=== PATIENT | male | born 1990 | race Caucasian/White ===

== ENCOUNTER 2018-08-17 11:22 | Inpatient (IN) | payer SELFPAY ==
--- NOTE | 2018-08-17 11:41 | EDPHY ---
H & P Time Seen by Provider: 08/17/18 11:41 HPI/ROS: HPI: This is a 27-year-old male who presents with Chief Complaint: Hallucination Location: psych Quality: Hallucination Duration: Unknown Signs and Symptoms: + auditory hallucinations, +visual hallucinations, no suicidal ideation with a plan, no homicidal ideation, + paranoia Timing: Unknown Severity: Severe Context: Patient presents on M1 hold from the walk-in clinic as he was reporting id you and usual hallucinations of "5-7 different voices" stating "to our which is." Patient reports seeing "which is in the flesh" in the room with the interview urine expresses distress about "which is tell me to do things I do not want to do." Patient reports history of bipolar disorder, presently denies taking medications. Patient unable to report last meal in sleep and is gravely disabled. Denies any drug or alcohol use. Modifying Factors: None Comment: ROS: Difficult to obtain as patient is gravely disabled MEDICAL/SURGICAL/SOCIAL HISTORY: Medical history: Bipolar disorder Surgical history: unknown Social history: Reports born in [place]. CONSTITUTIONAL: Untidy, malodorous, white male sleeping on left side, easily awakened upon calling his name, awake and alert, no obvious distress HEENT: Atraumatic and normocephalic, PERRL, EOMI. Nares patent; no rhinorrhea; no nasal mucosal edema. Tympanic membranes clear. Oropharynx clear, no exudate and moist pink mucosa. Airway patent. No lymphadenopathy. No meningismus. Cardiovascular: Normal S1/S2, regular rate, regular rhythm, without murmur rub or gallop. PULMONARY/CHEST: Symmetrical and nontender. Clear to auscultation bilaterally. Good air movement. No accessory muscle usage. ABDOMEN: Soft, nondistended, nontender, no rebound, no guarding, no peritoneal signs, no masses or organomegaly. No CVAT. EXTREMITIES: 2/2 pulses, strength 5/5, no deformities, no clubbing, no cyanosis or edema. NEUROLOGICAL: no focal neuro deficits. GCS 15. SKIN: Warm and dry, no erythema. no rash. Good capillary refill. PSYCH: Poor eye contact, + flight of ideas, tangential disorganized thought process, poor insight and judgment,+ auditory hallucinations, +visual hallucinations, no suicidal ideation with a plan, no homicidal ideation, + paranoia Source: Patient, RN/MD Exam Limitations: Clinical condition Constitutional: Initial Vital Signs Temperature (C) 36.8 C 08/17/18 11:22 Heart Rate 93 08/17/18 11:22 Respiratory Rate 16 08/17/18 11:22 Blood Pressure 139/82 H 08/17/18 11:22 O2 Sat (%) 98 08/17/18 11:22 O2 Delivery Mode Room Air Allergies/Adverse Reactions: Sulfa (Sulfonamide Antibiotics) Allergy (Verified 08/17/18 11:58) Home Medications: Medication Instructions Recorded NK [No Known Home Meds] 08/17/18 Medical Decision Making ED Course/Re-evaluation: Agree with M1 hold as patient is gravely disabled. Labs and UDS ordered. Given Zyprexa 5 mg. 1250: Labs reviewed and grossly unremarkable. Urine drug screen negative. Medically clear for mental health evaluation. 1345: Psychiatry recommends inpatient admission. Accepted at [address] [place] [address] Modi[address] EMTALA form completed. This patient was seen under the supervision of my secondary supervising physician. I evaluated care for this patient independently. Discussed this patient with Dr. Roldan. Differential Diagnosis: Differential diagnosis includes but is not limited to schizophrenia, gael, psychosis, bipolar disorder, intoxicant use. - Data Points Laboratory Results: Laboratory Results 08/17/18 11:53 08/17/18 11:53 08/17/18 08/17/18 08/17/18 11:53 11:53 11:40 WBC 7.59 10^3/uL 10^3/uL (3.80-9.50) RBC 5.72 10^6/uL 10^6/uL (4.40-6.38) Hgb 17.7 g/dL H g/dL (13.7-17.5) Hct 48.3 % % (40.0-51.0) MCV 84.4 fL fL (81.5-99.8) MCH 30.9 pg pg (27.9-34.1) MCHC 36.6 g/dL g/dL (32.4-36.7) RDW 11.9 % % (11.5-15.2) Plt Count 220 10^3/uL 10^3/uL (150-400) MPV 12.1 fL H fL (8.7-11.7) Neut % (Auto) 70.7 % % (39.3-74.2) Lymph % (Auto) 18.6 % % (15.0-45.0) Warrick % (Auto) 7.2 % % (4.5-13.0) Eos % (Auto) 2.6 % % (0.6-7.6) Baso % (Auto) 0.8 % % (0.3-1.7) Nucleat RBC Rel Count 0.0 % % (0.0-0.2) Absolute Neuts (auto) 5.36 10^3/uL 10^3/uL (1.70-6.50) Absolute Lymphs (auto) 1.41 10^3/uL 10^3/uL (1.00-3.00) Absolute Monos (auto) 0.55 10^3/uL 10^3/uL (0.30-0.80) Absolute Eos (auto) 0.20 10^3/uL 10^3/uL (0.03-0.40) Absolute Basos (auto) 0.06 10^3/uL 10^3/uL (0.02-0.10) Absolute Nucleated RBC 0.00 10^3/uL 10^3/uL (0-0.01) Immature Gran % 0.1 % % (0.0-1.1) Immature Gran # 0.01 10^3/uL 10^3/uL (0.00-0.10) Sodium 140 mEq/L mEq/L (135-145) Potassium 4.3 mEq/L mEq/L (3.3-5.0) Chloride 105 mEq/L mEq/L (97-110) Carbon Dioxide 22 mEq/l mEq/l (22-31) Anion Gap 13 mEq/L mEq/L (6-14) BUN 26 mg/dL H mg/dL (7-23) Creatinine 0.9 mg/dL mg/dL (0.7-1.3) Estimated GFR > 60 Glucose 101 mg/dL H mg/dL (70-100) Calcium 10.2 mg/dL mg/dL (8.5-10.4) Urine Opiates Screen NEGATIVE (NEGATIVE) Urine Barbiturates NEGATIVE (NEGATIVE) Ur Phencyclidine Scrn NEGATIVE (NEGATIVE) Ur Amphetamine Screen NEGATIVE (NEGATIVE) U Benzodiazepines Scrn NEGATIVE (NEGATIVE) Urine Cocaine Screen NEGATIVE (NEGATIVE) U Marijuana (THC) Screen NEGATIVE (NEGATIVE) Ethyl Alcohol < 10 mg/dL mg/dL (0-10) Medications Given: Discontinued Medications Olanzapine (Zyprexa Zydis) 5 mg PO EDNOW ONE Stop: 08/17/18 12:33 Last Admin: 08/17/18 12:42 Dose: 5 mg Departure - Departure Disposition: [facility] IP Clinical Impression: Acute schizophrenia-like psychotic disorder Condition: Fair
[2018-08-17 12:18] LABS: PLATELET COUNT 220 10^3/uL (150-400)
[2018-08-17] MEDS ORDERED: OLANZapine DISINTEGR 5 MG TAB PO ONE (12:32)
--- NOTE | 2018-08-17 13:57 | ASMTTLCEVL ---
TLC Evaluation - Basic Information Evaluation Start Date and 08/17/2018 01:00 PM Time Hospital Status Answers: M1 Hold 72-hr M1 Hold Start Date 08/17/2018 10:47 AM and Time Patient statement Notes: I hear 5-7 voices, two of them are witches that tell me what to do and that I belong to them. Narrative Notes: Pt is a 27 yo, single, unemployed, homeless male with reported history of Bipolar disorder, brought to [facility] ED by [facility] on M1 hold executed by clinician at the [facility] which noted: Ct report command auditory and visual hallucinations of 5-7 different voices stating two are witches. Ct report seeing witches in the flesh in the room and expresses distress about witches telling me to do things I dont want to. Ct reports history of bipolar diagnosis, presently denies taking medications. Ct unable to report last meal and sleep and is gravely disabled. Per collateral from [facility] staff, pt was found and brought to [facility] by [employer] after pt was witnessed running and chasing a dog around his car. Pt presented barefoot and with poor hygiene. Pt reported experiencing command auditory and visual hallucinations, two of the voices being witches that tell him he belongs to them, but says he know they are not real. Pt denied taking present medications. Pt did not appear to be a reliable historian and his thought processes were disorganized. He appeared at times to be responding to internal stimuli aeb glaring stare in the room and making several sudden movements and gestures with his hands, arms, and legs. When asked where he is from, he replied from here, from right here. When asked where his family is he stated my family is everywhere. Pt was directable and not aggressive. Pt was administered Zyprexa Zydis 5 mg po at 1242 hrs in the ED. Labs were WNL. UDS results were negative for all tested substances. Pt denied suicidal or homicidal ideation. Diagnosis History Notes: Reported past history of Bipolar disorder. Prior suicide attempts Notes: Unknown. Pt did not appear to be a reliable historian and his thought processes were disorganized. Treatment Responses Notes: Unknown. Pt did not appear to be a reliable historian and his thought processes were disorganized. History of violence Notes: Unknown. Pt did not appear to be a reliable historian and his thought processes were disorganized. Pt was directable and not aggressive. Therapist: Unknown. Pt did not appear to be a reliable historian and his thought processes were disorganized. Psychiatrist: Unknown. Pt did not appear to be a reliable historian and his thought processes were disorganized. Medications (name, dosage, route, freq uency) Notes: Unknown. Pt did not appear to be a reliable historian and his thought processes were disorganized. Pt stated his lasts use of medication as two weeks ago . . . six years. Allergies/Reaction Notes: NKDA. Sleep Notes: Unknown. Pt did not appear to be a reliable historian and his thought processes were disorganized. Appetite Notes: Unknown. Pt did not appear to be a reliable historian and his thought processes were disorganized. Medical/Surgical history Notes: Unknown. Pt did not appear to be a reliable historian and his thought processes were disorganized. Substance use history (frequency, intensity, his tory, duration) Notes: Unknown. Pt did not appear to be a reliable historian and his thought processes were disorganized. Family composition Notes: Unknown. Pt did not appear to be a reliable historian and his thought processes were disorganized. Need for family Answers: No participation in patient's care Family psychiatric/substance abuse history Notes: Unknown. Pt did not appear to be a reliable historian and his thought processes were disorganized. Developmental history Notes: Unknown. Pt did not appear to be a reliable historian and his thought processes were disorganized. Abuse concerns Answers: None Marital status/children Notes: Unknown. Pt did not appear to be a reliable historian and his thought processes were disorganized. Living situation Notes: Presumed homeless. Unknown. Pt did not appear to be a reliable historian and his thought processes were disorganized. Sexual history/orientation Notes: Presumed homeless. Unknown. Pt did not appear to be a reliable historian and his thought processes were disorganized. Peer support/family strengths Notes: None identified. Unknown. Pt did not appear to be a reliable historian and his thought processes were disorganized. Education level/history Notes: None identified. Unknown. Pt did not appear to be a reliable historian and his thought processes were disorganized. Work history Notes: Presumed to be unemployed. Unknown. Pt did not appear to be a reliable historian and his thought processes were disorganized. Notes: None. Legal Notes: Unknown. Pt did not appear to be a reliable historian and his thought processes were disorganized. Uatsdin/Spiritual Notes: Unknown. Pt did not appear to be a reliable historian and his thought processes were disorganized. Leisure Notes: Unknown. Pt did not appear to be a reliable historian and his thought processes were disorganized. Collateral Notes: Per collateral information provided by [facility] staff. Patient's strengths Answers: Artistic/Creative/Musical (Please select at least TWO strengths): Willingness TLC Evaluation - Mental Status Exam Appearance: Answers: Unclean Unkempt Disheveled Eye Contact: Answers: Avoiding Staring Mood: Answers: Irritable Labile Affect: Answers: Anxious Congruent w/ Mood Distracted Fearful Guarded Hyperactive Irritable Labile Suspicious Behavior: Answers: Uncooperative Anxious Erratic Fearful Guarded Impulsive Resistive to Care Restless Speech: Answers: Irrelevant Illogical Unclear Coherent Circumstantial Dramatic Flight of Ideas Grandiose Loose Associations Nonsensical Perseverating Pressured Rambling Thought Process: Answers: Disorganized Disoriented Circumstantial Distracted Flight of Ideas Loose Associations Paranoid Tangential Insight: Answers: Poor Judgement: Answers: Poor Manic Signs/Symptoms Answers: Hyperreligiosity Irritability Mood Swings Depression Answers: Difficulty Concentrating Signs/Symptoms: Psychomotor Agitation Withdrawn Hallucinations: Answers: Auditory Visual Delusions: Answers: Being Controlled Grandiose Mood-Incongruen t Persecution Uatsdin/Spiritual Current Stage of Change Answers: Precontemplation Pt reported to have Answers: No suicidal/self-injuring ideation/behavior? Pt reported to be making Answers: No suicidal/self-injuring threats? Pt reported to have Answers: No aggression/assault ideation/behavior? Pt reported to be making Answers: No aggression/assault threats? Pt exhibits inability to Answers: Yes care for self/grave disability? Ideation/behavior is Answers: No chronic? Patient has a specific Answers: No plan? Pt has access to means to Answers: No execute the plan? Ideation involves Answers: No serious/lethal intent? Ideation has Answers: Yes delusional/hallucinatory content? History of Answers: No suicidal/self-injuring ideation, behavior, or threats? History of Answers: No aggressive/assaultive ideation, behavior, or threats? History of serious Answers: No physical harm to self/others while in treatment setting? TLC Evaluation - Suicide/Homicide Risk Suicide Risk Factors: Answers: Agitation Bipolar Disorder Command Hallucinations Impulsivity Inadequate Social Support Lack of Uatsdin Support Lack of Social Support Lack/Loss of Employment Psychotic Disorder Schizophrenia Single Unstable Living Situation Homicide/violence risk Answers: Command Hallucinations factors: Paranoid Ideation Current Suicidal Answers: No Ideation? Current Suicidal Ideation Answers: No in the Past 48 Hours? Current Suicidal Ideation Answers: No in the Past Month? Current Suicidal Answers: No Ideation, Worst Ever? Suicide Internal Answers: None Protective Factors: Suicide External Answers: None Protective Factors: Ranking of patient's Answers: Low suicidal risk: Ranking of patient's Answers: Moderate homicidal risk: TLC Evaluation - Wrap-up AXIS I Diagnosis (include DSM-V and ICD-10 codes), must also be entered in [employer], which is the source of truth. Notes: Unspecified Schizophrenia Spectrum and Other Psychotic Disorder 298.9 (F29) R/ O Bipolar I Disorder, with psychotic features 296.54 (F31.5) In consultation with [facility] ED physician, Eva Roldan MD and on-call advanced psychiatric nurse practitioner, Emery Modi APN, both concurred that pt appears to meet 27-65 criteria requiring psychiatric hospitalization as pt appears to be gravely disabled due to a mental illness condition. Pt was given but declined to sign the [facility] prohibited belongings list while in the ED. Evaluation End Date and 08/17/2018 01:45 PM Time (HH:MM): Date Signed: 08/17/2018 01:45 PM Electronically Signed By:Josué Fleming
--- NOTE | 2018-08-17 14:05 | ASMTTCLDSP ---
TLC Discharge Disposition Disposition: Answers: Admit Disposition Notes: Notes: Admit 3N. Discharge Concerns/Recommendations: Notes: In consultation with [facility] ED physician, Eva Roldan MD and on-call advanced psychiatric nurse practitioner, Emery Modi APN, both concurred that pt appears to meet 27-65 criteria requiring psychiatric hospitalization as pt appears to be gravely disabled due to a mental illness condition. Pt was given but declined to sign the 3[facility] prohibited belongings list while in the ED. Was patient given the Answers: Yes Inpatient Behavioral Health Prohibited Belongings List while in the ED? For inpatient Emery Modi APN admission, the following psychiatrist agreed to accept patient for admission to Behavioral Health ([facility]): Date Signed: 08/17/2018 01:45 PM Electronically Signed By:Josué Fleming
[2018-08-17] MEDS ORDERED: ACETAMINOPHEN 325 MG TAB PO PRN (16:51)
[2018-08-17] MEDS ORDERED: MAGNESIUM HYDROXIDE 30 ML UDCUP PO PRN (16:51)
[2018-08-17] MEDS ORDERED: MAG HYDROX/AL HYDROX/SIMETH 30 ML UDCUP PO PRN (16:51)
[2018-08-17] MEDS ORDERED: NICOTINE POLACRILEX 2 MG GUM B PRN (16:52)
[2018-08-17] MEDS: OLANZapine DISINTEGR 10 MG TAB PO PRN (17:30)
[2018-08-17] MEDS: LORazepam 0.5 MG TAB PO PRN (17:30)
--- NOTE | 2018-08-17 19:05 | GCON ---
DATE OF CONSULTATION: 08/17/2018 HISTORY OF PRESENT ILLNESS: The patient is a 27-year-old gentleman with a history of schizophrenia, who presents to the emergency department with auditory hallucinations, visual hallucinations. He was on the M1 hold from the walk-in clinic and is reporting hearing 5-7 different voices. The patient denies any significant past medical history and denies recent fever, chills, cough, sputu m, nausea, vomiting, diarrhea. When I go in the room, he is hiding under a blanket, and it is indeed difficult to coax him out. He denies any painful areas on his skin, diarrhea, urgency, frequency, dysuria. REVIEW OF SYSTEMS: Complete 10-point review of systems conducted, negative except as noted in the HP I. PAST MEDICAL HISTORY: Bipolar. SOCIAL HISTORY: He is born in [place]. Does not smell of cigarettes. He denies alcohol. FAMILY HISTORY: Reviewed and unremarkable. ALLERGIES: Sulfa. HOME MEDICATIONS: No medications. PHYSICAL EXAMINATION: VITAL SIGNS: Temp 36.8, blood pressure 139/82, pulse 93, breathing 16 times a minute, 98% on room air. GENERAL: No acute distress. Appears to have not showered in a number of days or weeks based on the odor in the room. HEENT: Sclerae anicteric. Oropharynx clear. Mucous m embranes are moist. NECK: Supple, without lymphadenopathy or JVD. LUNGS: Clear to auscultation bi laterally. HEART: S1, S2. ABDOMEN: Soft, nontender, nondistended. LOWER EXTREMITIES: Without ed celina. Calves are nontender. SKIN: Without rash. NEUROLOGIC: Exam is nonfocal. LABS: White count 8, hematocrit 48.3, platelets 220,000. Sodium 140, potassium 4.3, chloride 105, b icarb 22, BUN 26, creatinine 0.9, glucose 101. Tox screen is negative. I discussed the case with KARIE Torres, in the emergency department. ASSESSMENT/PLAN: This is a 27-year-old gentleman with decompensated schizophrenia. 1. Schizophrenia. Management per Behavioral Health. 2. Elevated BUN. The patient may be clinically a bit dry. Would allow him to eat and drink as nece ssary. 3. Elevated hemoglobin. He is a young male. It is borderline high. Would follow. No specific wor kup indicated. DISPOSITION: To [facility]. /[id number]/MODL
[2018-08-17] MEDS ORDERED: OLANZapine DISINTEGR 10 MG TAB PO SCH (21:00)
[2018-08-18] MEDS: LORazepam 0.5 MG TAB PO PRN (08:22)
[2018-08-18] MEDS: OLANZapine DISINTEGR 10 MG TAB PO PRN ×2 (08:22→12:51)
[2018-08-18] MEDS ORDERED: LORazepam 0.5 MG TAB PO PRN (08:31)
--- NOTE | 2018-08-18 09:13 | ASMTBHMTP ---
Master Treatment Plan Master Treatment Plan Answers: Impaired Reality for: Date: 08/18/2018 Diagnosis on Admission: Unspecified Schizophrenia Spectrum and Other Psychotic Disorder 298.9 Expected length of stay: 3-5 Days Reason for admission: Notes: Per TLC Evaluation - Pt. is a 27 year old, single, unemployed, homeless male with reported history of Bipolar Disorder, brought to [facility] ED by [facility] on M1 hold executed by clinician at the [facility] which noted: "Ct. report command auditory and visual hallucinations of 5-7 different voices stating "two are witches". Ct. report seeing witches in the flesh in the room and expresses distress about "witches telling me to do things I don't want to." Ct. reports history of bipolar diagnosis, presently cooper taking medications. Ct. unable to report last meal and sleeping ans is gravely disabled." Per collateral from [facility] staff, pt was found and brought to [facility] by [employer] after pt was witnessed running and chasing a dog around his car. Pt. presented barefoot and with poor hygiene. Pt. reported experiencing command auditory and visual hallucinations, two of the voices being witches that tell him he "belongs to them", but says he knows they are not real. Pt. denied taking present medications. Pt. did not appear to be a reliable historian and his thought processes were disorganized. He appears at times to be responding to internal stimuli aeb, glaring stare in the room and making several sudden movements and gestures with his hands, arms, and legs. When asked where he is from, he replied "from here, from right here". When asked where his family is he stated "my family is everywhere". Pt. is directable and not aggressive. Pt. was administered Zyprexa Zydis 5 mg po at 1242 hrs. in the Ed. :abs were WNL. UDS results were negative for all tested substances. Pt. denied suicidal or homicidal ideation. Patient's stated presenting problems: Notes: Came in Voluntarily Patient's goals for treatment: Notes: Pt. refused to participated in MTP. Patient's strengths: Notes: Pt. refused to participated in MTP. Identify supports outside of hospital: Notes: Pt. refused to participated in MTP. Discharge criteria: Notes: Psychotic symptoms will be reduced or eliminated with return to baseline functioning in affect, thinking and behavior prior to discharge. Initial disposition plan/considerations: Notes: Pt. refused to participated in MTP. Master Treatment Plan Required Signatures Psychiatrist signature: Answers: Psychiatrist: RN on-shift signature: Answers: RN: Patient signature: Answers: Patient: Date Signed: 08/18/2018 09:12 AM Electronically Signed By:Sophia Bautista
--- NOTE | 2018-08-18 10:00 | BAPA ---
DATE OF SERVICE: 08/18/2018 CHIEF COMPLAINT: When this LICENSED INVESTMENT SALES ASSISTANT approached the patient in his room to request the patient to meet for psychiatric assessment and history, the patient had his back turned, would not respond. The patient refused to meet with this LICENSED INVESTMENT SALES ASSISTANT for psychiatric assessment and history. Nurse reported the patient acting bizarrely this morning. HISTORY OF PRESENT ILLNESS: Pertinent data from the ED note dated 08/17/2018: The patient presented to the emergency department on an M1 hold from the walk- in clinic as he was reporting unusual hallucinations. Reported, "5-7 different voices." The patient reported, "2 hour witches." Patient reported seeing "witches in the flesh." The patient reported during ER evaluation, "witches tell me to do things I do not want to do." The patient did report a history of bipolar disorder. Reported currently taking no medications. The patient was unable to report last meal, last time he slept. The patient denied drug or alcohol use. Pertinent data from the TLC evaluation dated 08/17/2018: The patient recorded to the TLC slitter service and setter, "I hear 5-7 voices, 2 of them are witches that tell me what to do and that I belong to them." The patient is single, unemployed, homeless, with a history of bipolar disorder, was brought to the [facility] ED by [facility] on an M1 hold that was placed by clinician at the walk-in clinic. M1 hold noted, "client reported command auditory and visual hallucinations of 5-7 different voices, stating 2 are witches. Client reported seeing witches in the flesh in the room and expresses distress about witches "telling me to do things I don't want to do." Client reports history of bipolar diagnosis. Presently denies taking any medications. Client unable to report last meal and sleep and is gravely disabled." [facility] gathered collateral from the walk-in clinic staff. The patient was found and brought to the walk-in clinic by [place] [employer] after patient was witnessed running and chasing a dog around his car. The patient presented barefoot with poor hygiene. The patient reported experiencing command auditory and visual hallucinations. The patient denied taking any medications currently. The patient did not appear to be a reliable historian and his thought processes were disorganized. The patient appeared to be attending to internal stimuli at times. The patient would stare in the room, making several sudden movements and gestures with his hands, arms and legs. When patient was asked where he was from, the patient reported, "from here, from right here." When asked where his family is, patient stated "My family is everywhere." The patient was redirected and not aggressive. Zyprexa Zydis 5 mg p.o. at 12:42 hours in the ED was administered. Labs were within normal limits. UDS results were negative and for all tested substances. The patient denied suicidal or homicidal ideation. PAST PSYCHIATRIC HISTORY: Pertinent data from the TLC evaluation: Patient has a past history of bipolar disorder. Unknown if the patient has any prior suicide attempts, as patient was not a reliable historian and was unable to reliably answer questions during the TLC evaluation. ALLERGIES: Sulfa. CURRENT MEDICATIONS: 1. Zyprexa Zydis 10 mg p.o. q.h.s. 2. Zyprexa Zydis 10 mg p.o. q.4 hours p.r.n. 3. Ativan 1 mg p.o. q.4 hours p.r.n. PAST MEDICAL HISTORY: Unknown at this time as patient refused to meet with this LICENSED INVESTMENT SALES ASSISTANT for psychiatric assessment and history, and patient did not provide any information regarding medical or surgical history during the TLC evaluation. This information will be gathered throughout the patient's stay. SOCIAL HISTORY: At this time is unknown, as patient refused to meet with this LICENSED INVESTMENT SALES ASSISTANT for psychiatric assessment and history. No information in the TLC evaluation as patient did not appear to be a reliable historian and thought processes were disorganized during evaluation and unable to gather information during the TLC evaluation. Social history information will continue to be gathered throughout the patient's hospitalization. SUBSTANCE USE HISTORY: The patient's substance use history is unknown at this time. The patient refused to meet with this LICENSED INVESTMENT SALES ASSISTANT for psychiatric assessment and history. The patient did not provide any reliable information during the TLC evaluation due to his current condition. This information will continue to be gathered throughout the patient's hospitalization. FAMILY PSYCHIATRIC HISTORY: The patient's family psychiatric history is unknown at this time as patient refused to meet with this LICENSED INVESTMENT SALES ASSISTANT for psychiatric assessment and history. The patient was unable to provide reliable information during the TLC evaluation. This information will continue to be gathered throughout the patient's hospitalization. ADMISSION LABS: 1. CBC from 08/17/2018, within normal limits except hemoglobin was elevated at 17.7, MPV was elevated at 12.1. 2. BMP from 08/17/2018, within normal limits except BUN was elevated at 26, and glucose was elevated at 101. 3. Hemoglobin A1c is pending. 4. Liver function from 08/18/2018, within normal limits except albumin was elevated at 5.1. 5. Lipid panel from 08/18/2018, within normal limits except cholesterol was elevated at 235, LDL cholesterol calculated was elevated at 168, and non-HDL cholesterol was elevated at 182. 6. Toxicology screen from 08/17/2018, negative for all substances tested and negative for ethyl alcohol. MENTAL STATUS EXAM: The patient is an undernourished male looking stated chronological age. Attire is inappropriate. The patient presents with his hospital gown over his head. Hospital garb is unkempt and disheveled. Grooming status is inappropriate and disheveled, dirty, unshaven, and malodorous. Ambulation is independent. Gait is normal and coordinated. Posture is abnormal and tense. The patient presents threatening with threatening posture when approached by this LICENSED INVESTMENT SALES ASSISTANT, Nursing staff, and Security. Eye contact is inappropriate, at times avoided, at other times staring and glaring at this LICENSED INVESTMENT SALES ASSISTANT, Nursing staff, and Security. Motor activity is appropriate at times with purposeful, organized, coordinated movements with no involuntary movements. At other times the patient makes bizarre, jerky movements with arms , hands, and feet. Attitude is uncooperative, guarded, defensive, and the patient appeared hostile. The patient appears disinterested, distractible, internally occupied, and does not relate well to this interviewer, Nursing staff , or Security. Language production is unspontaneous. When patient does speak, which is only a few times, rate is pressured. Latency of response is prolonged , at other times, shortened with irritable tone, high volume, and amount is sparse to mute. Articulation is clear. Unable to appropriately assess patient' s mood at this time. Affect appears to be irritable, anxious. The patient's thought process is nonlinear and illogical with loose associations, tangential thought, thought blocking. The patient does not report suicidal, homicidal thoughts, ideas, or plans. Unable to assess whether patient is currently experiencing auditory or visual hallucinations, as patient does not respond when this question is asked, unable to appropriately assess whether patient is currently experiencing delusions. The patient does appear to be attending to internal stimuli. Unable to appropriately assess the patient's current orientation as patient does not respond. The patient's attention and concentration are poor. The patient's insight and judgment are poor. Unable to appropriately assess cognitive function at this time as patient refuses to meet for psychiatric assessment history and patient only responds to a few questions. The patient does not report undesirable side effects from current medications. DIAGNOSIS: Based on the patient's history and current presentation, patient's diagnosis is unspecified psychosis. FORMULATION: The patient is a 27-year-old male, single, unemployed, homeless, who presents to the hospital involuntarily due to being gravely disabled and is currently on an M1 hold. Patient requires continued care because of current psychosis. The patient presents with problems of acute psychosis and it is unknown at this time how long these symptoms have been occurring and whether or not they have been increasing over certain period of time. The patient's life has been affected by these problems including his inability to appropriately care for himself and to communicate his basic needs. The onset and exacerbation of symptoms are unknown at this time. The patient reports a past psychiatric history of bipolar disorder and reports currently at time of admission was not taking any psychotropic medications. Psychosocial stressors include homelessness, unemployment. The patient is at a high safety risk due to current acute psychosis. Protective factors while hospitalized include ongoing safety checks, active involvement in treatment, and support from our treatment team. Patient could benefit from inpatient hospitalization for safety , crisis stabilization, and medication evaluation. PLAN: 1. Psychotropic medications. At this time will continue current medications listed above and will make changes as indicated based on patient's presentation. No other medication changes at this time as more time is needed to determine ongoing tolerability and efficacy. Plan is to continue to observe patient for response and side effects from medications, and ongoing monitoring and evaluation. 2. Review with patient informed consent and recommendations for psychotropic medication treatment listed below 3. Labs: no additional labs at this time 4. Therapy: continue milieu and group therapy 5. Further investigation including gathering information from patients relatives and review of past case records to inform treatment plan. 6. Safety/Wellness plan and follow-up outpatient appointments to be established prior to discharge. Next steps are for patient to meet with medicare specialist to plan a safe discharge plan and establish outpatient services for ongoing treatment. 7. Confer with inpatient treatment team regarding treatment plan. 8. Address psychosocial stressors by meeting with home care consultant to establish discharge plan including referrals for outpatient services. 9. Legal status: M1 10. Consider discharge next week if patient is in stable condition, safe, and has a safe discharge plan. 11. Substance abuse interventions: ESTIMATED LENGTH OF STAY: 5-7 days PSYCHOTROPIC MEDICATION TREATMENT INFORMED CONSENT and RECOMMENDATIONS: Review nature of condition, diagnosis, and prognosis. Review nature and purpose of psychotropic medication treatment. Review type of psychotropic medications being ordered. Review risk and benefits of psychotropic medication treatment. Review probable length of time will need to take medications. Review risk and benefits of not undergoing psychotropic medication treatment. Review alternative treatments to psychotropic medications. Review psychotropic medications contraindications, drug-drug interactions, side effects, and importance of reporting any side effects to a psychiatric provider or nurse during inpatient hospitalization, and upon discharge to patients psychiatric outpatient provider, primary care provider, or other health hospice spiritual care coordinator. Review importance of asking a nurse, psychiatric provider, or primary care provider any questions or problems concerning the psychotropic medications. Verify patient understands the information that has been provided, and understands, accepts, and agrees to psychotropic medications. Review patients safety plan and importance of patient to communicate to staff while hospitalized if patient is ever a danger to self/others, or unable to care for self, and upon discharge, the importance for patient to contact [facility] or [facility], or go to the nearest emergency room, if patient is ever a danger to self/others, or unable to care for self. Recommend that upon discharge patient establish medication management treatment with a psychiatric provider, establishes routine therapy appointments, and follow-up with primary care provider. Verify patient understands and agrees to these recommendations. /[id number]/MODL MTDD
[2018-08-18] MEDS ORDERED: OLANZapine DISINTEGR 10 MG TAB PO PRN (15:45)
[2018-08-18] MEDS: OLANZapine DISINTEGR 10 MG TAB PO SCH (21:05)
--- NOTE | 2018-08-19 09:22 | SOAPPROG ---
SOAP Progress Note Assessment/Plan: Assessment: Substance-induced psychosis. Slight improvement noted. (see subjective/ objective note). Patient is not safe to discharge at this time as patient continues to exhibit signs of psychosis, and express psychosis symptoms. Patient requires continued inpatient care because of current psychosis, and requires inpatient level of care to stabilize in order to no longer be gravely disabled due to mental illness. Patient could benefit from continued inpatient hospitalization for crisis stabilization, safety, and medication evaluation. Patients psychosis is clearing, likely discharge Friday. Plan: 1. Psychotropic medications: After reviewing options, risks, and benefits patient agrees to continue current medications. No other medication changes at this time as more time is needed to determine ongoing tolerability and efficacy. Plan is to continue to observe patient for response and side effects from medications, and ongoing monitoring and evaluation. 2. Review with patient informed consent and recommendations for psychotropic medication treatment listed below 3. Labs: no additional labs at this time 4. Therapy: continue milieu and group therapy 5. Further investigation including gathering information from patients relatives and review of past case records to inform treatment plan. 6. Safety/Wellness plan and follow-up outpatient appointments to be established prior to discharge. Next steps are for patient to meet with group care worker to plan a safe discharge plan and establish outpatient services for ongoing treatment. 7. Confer with inpatient treatment team regarding treatment plan. 8. Psychosocial stressors addressed through career discovery teacher 9. Legal status: M1, agrees to voluntary 10. Consider discharge on Friday if patient is in stable condition, safe, and has a safe discharge plan. 11. Substance abuse interventions: polysubstance abuse as patient unwilling to provide specific drug use history PSYCHOTROPIC MEDICATION TREATMENT INFORMED CONSENT and RECOMMENDATIONS: Review nature of condition, diagnosis, and prognosis. Review nature and purpose of psychotropic medication treatment. Review type of psychotropic medications being ordered. Review risk and benefits of psychotropic medication treatment. Review probable length of time patient will need to take medications. Review risk and benefits of not undergoing psychotropic medication treatment. Review alternative treatments to psychotropic medications. Review psychotropic medications contraindications, drug-drug interactions, side effects, and importance of reporting any side effects to a psychiatric provider or nurse during inpatient hospitalization, and upon discharge to patients psychiatric outpatient provider, primary care provider, or other health personal carer. Review importance of asking a nurse, psychiatric provider, or primary care provider any questions or problems concerning the psychotropic medications. Verify patient understands the information that has been provided, and understands, accepts, and agrees to psychotropic medications. Review patients safety plan and importance of patient to report to staff while hospitalized if patient is ever a danger to self/others, or unable to care for self, and upon discharge, the importance for patient to contact [facility] or [facility], or go to the nearest emergency room, if patient is ever a danger to self/others, or unable to care for self. Recommend that upon discharge patient establish medication management treatment with a psychiatric provider, establishes routine therapy appointments, and follow-up with primary care provider. Verify patient understands and agrees to these recommendations. 08/19/18 09:24 Subjective: Following up with patient for evaluation of psychosis and safety. Patient reports, "Going pretty good, get like this sometimes after I use drugs." Patient unwilling to provide any information regarding drug use prior to hospitalization. With regard to past psychiatric diagnoses patient reports, "Yeah, I was diagnosed once in [place] for bipolar after I did some drugs, think it went away though. Get like that when I use drugs." Patient expresses the following psychiatric symptoms severe anxiety. Patient reports taking medications as prescribed, and describes response to medications as good. Patient does not report undesirable side effects from the medications, and agrees to continue current medications. Patient describes getting 8 hours of sleep, and reports he feels rested today. Patient agrees to voluntary hospitalization with plan to discharge Friday at which time psychosis will be cleared enough patient will no longer require inpatient hospitalization. Objective: Vital Signs Temp Pulse Resp BP Pulse Ox 36.7 C 70 20 106/61 97 08/19/18 06:00 08/19/18 06:00 08/19/18 06:00 08/19/18 06:00 08/19/18 06:00 NURSING REPORT: Consulted with nursing for update on patients progress in treatment. Nurses report patient is engaged in treatment, is not attending groups, withdrawn to room sleeping, slept 9 hours, expresses the following psychiatric symptoms: agitation, irritable; exhibits the following psychiatric symptoms: disorganized, tangential, illogical, withdrawn; is eating all meals with prompting and direction from staff, is agreeable to medications and taking as prescribed with no report of side effects, with no s/s of EPS/akathisia, and denies SI/HI, denies A/V hallucinations, and denies delusions. SUBSTANCE ABUSE BRIEF INTERVENTION: Brief intervention regarding the risks of substance abuse is provided to patient with goal to reduce the risk of harm that could result from the continued use of substances, with the general aim to investigate the problem, raise awareness of problem, develop a solution with the patient, recommend a specific change or activity, and motivate the patient toward change. Assess substance abuse behavior and give supportive advice about harm reduction, recommend a reduction in hazardous/at-risk consumption patterns, and facilitate referrals for additional specialized treatment with career discovery teacher. Intermediate goal is for the patient to quit and attend outpatient substance abuse treatment. Intervention focus on intermediate goals to allow for more immediate success in the treatment process to keep the patient motivated. Review following with patient: Cannabis use risks: Short- term use: impaired short-term memory, impaired motor coordination, altered judgement, in high doses paranoia and psychosis. Long-term use addiction, diminished life satisfaction and achievement, symptoms of chronic bronchitis, and increased risk of chronic psychosis disorders if predisposition to such disorders. In withdrawal anger, aggression irritability, anxiety and nervousness, decreased appetite or weight loss, restlessness, and sleep difficulties with strange dreams. Alcohol/Binge Drinking risks: short-term: injuries, violence, alcohol poisoning, risky sexual behaviors. Long-term: high blood pressure, stroke, liver disease, digestive problems, cancer, learning and memory problems, depression and anxiety, social problems, and alcohol dependence. Cocaine use risks: Short-term: erratic and violent behavior, panic attacks, paranoia, psychosis; heart rhythm problems, heart attack; stroke, seizure, coma. Long-term: Loss of sense of smell, nosebleeds, nasal damage and trouble swallowing from snorting; infection and of bowel tissue from decreased blood flow; poor nutrition and weight loss; lung damage from smoking. Methamphetamine use risks: Short-term: insomnia, irritability, aggressive behavior, hallucinations, delusions, intellectual deficits, anxiety, depression , convulsions, damage to blood vessels in the brain causing strokes, high fevers , collapse of the circulatory system. Long-term: damage to nerve pathways, maybe irreversibly; overstimulation to dopamine impairing dopamine transport and reducing efficiency of dopamine receptors, the reward system becomes worn out, leading to inability to experience pleasure for years. Hallucinogen use risks: paranoia, psychosis, speech problems, memory loss, weight loss, anxiety, and depression and suicidal thoughts. OUTPATIENT SUBSTANCE ABUSE TREATMENT: Patient referred to outpatient provider and treatment for continued treatment related to substance abuse. MSE: The patient is an under-nourished male looking older than stated chronological age. Attire is inappropriate and dress is casual and hospital garb combination. Grooming status is appropriate and clean. Ambulation is independent. Gait is normal and coordinated. Posture is normal and relaxed. Eye contact is inappropriate and avoided. Motor activity is appropriate with purposeful, organized, coordinated movements; with no involuntary movements. Attitude is cooperative. Patient appears more attentive. Language production is spontaneous. R/R/V normal. Articulation is clear. Patient reports mood as okay with incongruent and expansive affect. Patients thought process non-linear , illogical, tangential, nonsensical and disorganized. Patient does not report suicidal/homicidal thoughts, ideas, or plans. Patient denies auditory hallucinations, denies visual hallucinations. Patient denies delusions. Patient does not appear to be attending to internal stimuli during interview. Patients attention and concentration are poor. Patient is oriented to person, place, time. Patients insight and judgement are poor. - Time Spent With Patient Time Spent With Patient: 15 minutes, met with patient individually. - Pending Discharge Pending Discharge Within 24 Hours: No Pending Discharge Within 48 Hours: Yes Pending Discharge Date: 08/21/18 Pending Discharge Time: 11:00 ICD10 Worksheet Patient Problems: Problems Problem Status Onset Unspecified psychosis Acute
[2018-08-19] MEDS ORDERED: OLANZapine DISINTEGR 10 MG TAB PO ONE (10:39)
--- NOTE | 2018-08-19 14:12 | ASMTBHDC ---
Notes Note: Notes: CC was able to confirm client's follow up out-patient appts: Follow up with: [facility] [address] [place] [address], [facility] Intake Appt: August 27 (08/27/18) at 9am with Jus. AT [facility] [address] [facility] Date Signed: 08/19/2018 02:11 PM Electronically Signed By:Bronson Fitzpatrick
[2018-08-19] MEDS: OLANZapine DISINTEGR 10 MG TAB PO SCH (19:57)
[2018-08-20] MEDS: OLANZapine DISINTEGR 10 MG TAB PO SCH ×2 (08:44→19:03)
--- NOTE | 2018-08-20 12:11 | SOAPPROG ---
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 Slight improvement noted; patient's psychosis due to recent hallucinogen use is slowly clearing (see subjective/objective note). Patient is not safe to discharge at this time as patient continues to exhibit signs of psychosis, and express psychosis symptoms. Patient presents a danger to others as evidenced by behavior during treatment team and during art therapy group yesterday. Patient requires continued inpatient care because of current psychosis, and requires inpatient level of care to stabilize to no longer be gravely disabled due to mental illness. Patient could benefit from continued inpatient hospitalization for crisis stabilization, safety, and medication evaluation. Plan: 1. Psychotropic medications: After reviewing options, risks, and benefits patient agrees to continue current medications. No other medication changes at this time as more time is needed to determine ongoing tolerability and efficacy. Plan is to continue to observe patient for response and side effects from medications, and ongoing monitoring and evaluation. 2. Review with patient informed consent and recommendations for psychotropic medication treatment listed below 3. Labs: no additional labs at this time 4. Therapy: continue milieu and group therapy 5. Further investigation including gathering information from patients relatives and review of past case records to inform treatment plan. 6. Safety/Wellness plan and follow-up outpatient appointments to be established prior to discharge. Next steps are for patient to meet with animal caretaker to plan a safe discharge plan and establish outpatient services for ongoing treatment. 7. Confer with inpatient treatment team regarding treatment plan. 8. Psychosocial stressors addressed through health care legal assistant 9. Legal status: voluntary 10. Consider discharge on Friday if patient is in stable condition, safe, and has a safe discharge plan. 11. Substance abuse interventions: hallucinogen use PSYCHOTROPIC MEDICATION TREATMENT INFORMED CONSENT and RECOMMENDATIONS: Review nature of condition, diagnosis, and prognosis. Review nature and purpose of psychotropic medication treatment. Review type of psychotropic medications being ordered. Review risk and benefits of psychotropic medication treatment. Review probable length of time patient will need to take medications. Review risk and benefits of not undergoing psychotropic medication treatment. Review alternative treatments to psychotropic medications. Review psychotropic medications contraindications, drug-drug interactions, side effects, and importance of reporting any side effects to a psychiatric provider or nurse during inpatient hospitalization, and upon discharge to patients psychiatric outpatient provider, primary care provider, or other health daycare director. Review importance of asking a nurse, psychiatric provider, or primary care provider any questions or problems concerning the psychotropic medications. Verify patient understands the information that has been provided, and understands, accepts, and agrees to psychotropic medications. Review patients safety plan and importance of patient to report to staff while hospitalized if patient is ever a danger to self/others, or unable to care for self, and upon discharge, the importance for patient to contact [facility] or [facility], or go to the nearest emergency room, if patient is ever a danger to self/others, or unable to care for self. Recommend that upon discharge patient establish medication management treatment with a psychiatric provider, establishes routine therapy appointments, and follow-up with primary care provider. Verify patient understands and agrees to these recommendations. 08/20/18 12:12 Subjective: Following up with patient for evaluation of psychosis and safety. Patient reports, "Going better, it just takes me awhile after I use drugs. Some people can use drugs and be back to normal after a day or two, for me it takes more. Still feel pretty disorganized and crazy." Patient describes using "mushrooms, LSD, mushrooms, LSD" prior to admission. Patient reports these are his drugs of choice, and reports history of similar psychotic break in [place] after using hallucinogens. Patient reports psychosis at that time cleared in a week. Patient reports he was diagnosed with bipolar disorder at time; however, diagnosis was inaccurate as his symptoms cleared after several weeks of not using hallucinogens. Patient reports taking medications as prescribed, and describes response to medications as good. Patient does not report undesirable side effects from the medications, and agrees to continue current medications. Patient describes getting 9 hours of sleep, and reports he feels rested today. Patient states he is not stable, and agrees to stay until beginning of next week to stabilize. Patient agrees to voluntary hospitalization with plan to discharge beginning of next week once psychosis clears due to recent substance use. Objective: Vital Signs Temp Pulse Resp BP Pulse Ox 36.7 C 58 L 16 112/62 99 08/20/18 06:00 08/20/18 06:00 08/20/18 06:00 08/20/18 06:00 08/20/18 06:00 NURSING REPORT: Consulted with nursing for update on patients progress in treatment. Nurses report patient is engaged in treatment, is attending groups, slept 9 hours, expresses the following psychiatric symptoms: agitation, irritable; exhibits the following psychiatric symptoms: disorganized, tangential , illogical, threatening toward staff; is eating all meals with prompting and direction from staff, is agreeable to medications and taking as prescribed with no report of side effects, with no s/s of EPS/akathisia, and denies SI/HI, denies A/V hallucinations, and denies delusions. TREATMENT TEAM MEETING: Patient met with treatment team today to review treatment plan, discuss goals for hospitalization, discharge plan, and change of status to voluntary. Patient did not respond well to meeting, was rude toward female staff and psychiatrist, and at one point during the interview patient was posturing toward female RN that was sitting near him at the table. Patient was asked to leave the meeting and did so without incident. SUBSTANCE ABUSE BRIEF INTERVENTION: Brief intervention regarding the risks of hallucinogen abuse is provided to patient with goal to reduce the risk of harm that could result from the continued use of substances, with the general aim to investigate the problem, raise awareness of problem, develop a solution with the patient, recommend a specific change or activity, and motivate the patient toward change. Assess hallucinogen abuse behavior and give supportive advice about harm reduction, recommend a reduction in hazardous/at-risk consumption patterns, and facilitate referrals for additional specialized treatment with health care legal assistant. Intermediate goal is for the patient to quit and attend outpatient substance abuse treatment. Intervention focus on intermediate goals to allow for more immediate success in the treatment process to keep the patient motivated. Review following with patient: Hallucinogen use risks: paranoia, psychosis, speech problems, memory loss, weight loss, anxiety, and depression and suicidal thoughts. OUTPATIENT SUBSTANCE ABUSE TREATMENT: Patient referred to outpatient provider and treatment for continued treatment related to substance abuse. MSE: The patient is an under-nourished male looking older than stated chronological age. Attire is inappropriate and dress is hospital garb combination with blanket draped over head and body. Grooming status is appropriate and clean. Ambulation is independent. Gait is normal and coordinated. Posture is abnormal and tense. Eye contact is inappropriate and avoided at times, at other times staring/glaring. Motor activity is appropriate with purposeful, organized, coordinated movements; with no involuntary movements. Attitude is uncooperative. Patient appears distractible and does not relate well to this interview or other members of staff during treatment team meeting. Language production is spontaneous. R/R/ V normal. Articulation is clear. Patient reports mood as okay with incongruent and expansive affect. Patients thought process non-linear, illogical, tangential, nonsensical and disorganized. Patient does not report suicidal/homicidal thoughts, ideas, or plans. Patient denies auditory hallucinations, denies visual hallucinations. Patient denies delusions. Patient does not appear to be attending to internal stimuli during interview. Patients attention and concentration are poor. Patient is oriented to person, place, time. Patients insight and judgement are poor. - Time Spent With Patient Time Spent With Patient: 30 minutes, met with patient individually and with patient and treatment team. 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
[2018-08-21] MEDS: OLANZapine DISINTEGR 10 MG TAB PO SCH ×2 (08:25→19:03)
--- NOTE | 2018-08-21 08:29 | SOAPPROG ---
SOAP Progress Note Assessment/Plan: Assessment: Hallucinogen-induced psychosis. Slight improvement noted; patients psychosis due to recent hallucinogen use is clearing slowly (see subjective/objective note ). Patient is not safe to discharge at this time as patient continues to exhibit signs of psychosis, and express psychosis symptoms. Patient presented a danger to others as evidenced by behavior during treatment team on Friday and during art therapy group on Friday. Patient requires continued inpatient care because of current psychosis, recent threat toward others, and requires inpatient level of care to stabilize to no longer be a danger to others and be able to function appropriately and safely within the community. Patient could benefit from continued inpatient hospitalization for crisis stabilization, safety, and medication evaluation. Plan: 1. Psychotropic medications: After reviewing options, risks, and benefits patient agrees to continue current medications. No other medication changes at this time as more time is needed to determine ongoing tolerability and efficacy. Plan is to continue to observe patient for response and side effects from medications, and ongoing monitoring and evaluation. 2. Review with patient informed consent and recommendations for psychotropic medication treatment listed below. 3. Labs: no additional labs at this time. 4. Therapy: continue milieu and group therapy. 5. Further investigation including gathering information from patients relatives and review of past case records to inform treatment plan. 6. Safety/Wellness plan and follow-up outpatient appointments to be established prior to discharge. Next steps are for patient to meet with neonatal intensive care unit nurse to plan a safe discharge plan and establish outpatient services for ongoing treatment. 7. Confer with inpatient treatment team regarding treatment plan. 8. Psychosocial stressors addressed through care rep and substance abuse intervention. 9. Legal status: voluntary. 10. Consider discharge on Friday if patient is in stable condition, safe, and has a safe discharge plan. 11. Substance abuse interventions: hallucinogen use. PSYCHOTROPIC MEDICATION TREATMENT INFORMED CONSENT and RECOMMENDATIONS: Review nature of condition, diagnosis, and prognosis. Review nature and purpose of psychotropic medication treatment. Review type of psychotropic medications being ordered. Review risk and benefits of psychotropic medication treatment. Review probable length of time patient will need to take medications. Review risk and benefits of not undergoing psychotropic medication treatment. Review alternative treatments to psychotropic medications. Review psychotropic medications contraindications, drug-drug interactions, side effects, and importance of reporting any side effects to a psychiatric provider or nurse during inpatient hospitalization, and upon discharge to patients psychiatric outpatient provider, primary care provider, or other health home care specialist. Review importance of asking a nurse, psychiatric provider, or primary care provider any questions or problems concerning the psychotropic medications. Verify patient understands the information that has been provided, and understands, accepts, and agrees to psychotropic medications. Review patients safety plan and importance of patient to report to staff while hospitalized if patient is ever a danger to self/others, or unable to care for self, and upon discharge, the importance for patient to contact [facility] or [facility], or go to the nearest emergency room, if patient is ever a danger to self/others, or unable to care for self. Recommend that upon discharge patient establish medication management treatment with a psychiatric provider, establishes routine therapy appointments, and follow-up with primary care provider. Verify patient understands and agrees to these recommendations. 08/21/18 08:30 Subjective: Following up with patient for evaluation of psychosis and safety. Patient reports, "Feel much better, not as agitated, anxious. Glad my dog is okay and will pick him up from my mom's when I discharge next week." Patient reports taking medications as prescribed, and describes response to medications as good. Patient does not report undesirable side effects from the medications, and agrees to continue current medications. Patient describes getting 8 hours of sleep, reports improved sleep, and reports he feels rested today. Patient agrees to voluntary hospitalization with plan to discharge beginning of next week once psychosis clears due to recent substance use. Objective: Vital Signs Temp Pulse Resp BP Pulse Ox 36.6 C 62 14 103/56 L 97 08/21/18 06:00 08/21/18 06:00 08/21/18 06:00 08/21/18 06:00 08/21/18 06:00 NURSING REPORT: Consulted with nursing for update on patients progress in treatment. Nurses report patient is engaged in treatment, is attending groups, slept 8.5 hours, expresses the following psychiatric symptoms: moderate anxiety ; exhibits the following psychiatric symptoms: disorganized behavior, is redirectable; patient was able to remain in art group yesterday, was appropriate with staff and other patients, and did not exhibit any threatening behavior yesterday; is agreeable to medications and taking as prescribed with no report of side effects, with no s/s of EPS/akathisia, and denies SI/HI, denies A/V hallucinations, and denies delusions. CARE COORDINATION: student records coordinator has made referrals to [facility] for appointments for medication management, therapy, and substance abuse treatment. Patient to follow-up next week after discharge. SUBSTANCE ABUSE BRIEF INTERVENTION: Brief intervention regarding the risks of hallucinogen abuse is provided to patient with goal to reduce the risk of harm that could result from the continued use of substances, with the general aim to investigate the problem, raise awareness of problem, develop a solution with the patient, recommend a specific change or activity, and motivate the patient toward change. Assess hallucinogen abuse behavior and give supportive advice about harm reduction, recommend a reduction in hazardous/at-risk consumption patterns, and facilitate referrals for additional specialized treatment with care rep. Intermediate goal is for the patient to quit and attend outpatient substance abuse treatment. Intervention focus on intermediate goals to allow for more immediate success in the treatment process to keep the patient motivated. Review following with patient: Hallucinogen use risks: paranoia, psychosis, speech problems, memory loss, weight loss, anxiety, and depression and suicidal thoughts. OUTPATIENT SUBSTANCE ABUSE TREATMENT: Patient referred to outpatient provider and treatment for continued treatment related to substance abuse. MSE: The patient is an under-nourished male looking older than stated chronological age. Attire is appropriate and dress is hospital garb combination. Grooming status is appropriate and clean. Ambulation is independent. Gait is normal and coordinated. Posture is abnormal and tense. Eye contact is inappropriate and avoided at times, at other times staring/ glaring. Motor activity is appropriate with purposeful, organized, coordinated movements; with no involuntary movements. Attitude is uncooperative. Patient appears more attentive and relates fairly well to this interviewer. Language production is spontaneous. R/R/V normal. Articulation is clear. Patient reports mood as okay with incongruent and expansive affect. Patients thought process more linear, less illogical and disorganized. Patient does not report suicidal/homicidal thoughts, ideas, or plans. Patient denies auditory hallucinations, denies visual hallucinations. Patient denies delusions. Patient does not appear to be attending to internal stimuli during interview. Patients attention and concentration are poor. Patient is oriented to person, place, time. Patients insight and judgement are poor. - Time Spent With Patient Time Spent With Patient: 15 minutes, met with patient individually. 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
--- NOTE | 2018-08-21 15:22 | ASMTCMCOM ---
CM Note CM Note Notes: According to [facility] staff, the client continues to endorse psychosis. He reported increased A/VH including fixations on another patient. The patient plans to discharge on August 24 to stay with friends. The patient's mother picked up his pet from the [employer]. Date Signed: 08/21/2018 03:08 PM Electronically Signed By:Amanda Douglass
[2018-08-22 07:38] VITALS: BP 118/78
[2018-08-22] MEDS: OLANZapine DISINTEGR 10 MG TAB PO SCH (07:48)
--- NOTE | 2018-08-22 15:05 | ASMTBHDC ---
Notes Note: Notes: Pt. reports "doing good, feeling good". Pt. stated he does have some soreness in the left side of his neck. Pt. stated he slept "good" adding he had a few nightmares which he was in last night. Pt. stated he is eating well. Pt. stated no issues with his medications, adding "feel no different", and "more or less the same". Pt. stated he "try to hit them all" about groups. Pt. denied SI, HI, AVH and paranoia. Pt. stated he is discharging on Friday, to go get his van which is parked in an underground parking garage. Pt. requested a bus ticket to get to his car. Pt. stated he can fill and take his medications and he has a coat. Staff report pt. sleeping 9.5 hours and being medication compliant. Date Signed: 08/22/2018 03:04 PM Electronically Signed By:Sophia Bautista
--- NOTE | 2018-08-22 15:18 | ASMTBHDC ---
Notes Note: Notes: Pt's follow up care: [facility] [address] [place] [address] [address] [facility], [facility] Intake Appt: August 27 (08/27/18) at 9am with Jus. AT [facility] 2ND FLOOR Date Signed: 08/22/2018 03:17 PM Electronically Signed By:Sophia Bautista
[2018-08-22] MEDS ORDERED: OLANZapine DISINTEGR 10 MG TAB PO SCH (21:00)
--- NOTE | 2018-08-23 03:38 | BDS ---
REASON FOR ADMISSION: The patient is a 27-year-old man who was sent to the [facility] ED on an M1 hold from the [facility] walk-in clinic due to self-report of auditory and visual hallucinations, talking nonsensically, unable to report when he had his last meal or where he last slept. The patient was deemed to be acutely psychotic and gravely disabled. ADMITTING DIAGNOSIS: As follows: Unspecified psychosis. Admitting physical examination was done by Harry Anton. Please see his H and P for details. There were no acute physical abnormalities. ADMISSION LABS: White cell count was 8, hematocrit 48.3, platelets 220. Sodium 140, potassium 4.3, chloride 105, bicarb 22, BUN 26, creatinine 0.9, glucose 101. Tox screen was negative. No additional workup or followup was recommended. HOSPITAL COURSE: The patient was admitted the inpatient [facility] on an M1 hold. After he was admitted he saw Emery Modi, the psychiatric nurse practitioner, who changed his diagnosis to substance induced psychosis based upon the patient's admission that he had been using hallucinogens heavily just prior to admission, even though they did not show up on his urine drug screen. Patient admitted that he had used LSD and shrooms just prior to his admission. He says that typically when he has used hallucinogens in the past they make him acutely psychotic. He says "I get like this sometimes after I use drugs." The patient admits that he had been previously admitted to the hospital in [place] after using psychoactive substances and says that when he was in the hospital there he was diagnosed with bipolar disorder, but says it happened "after I did some drugs," and he said that after being in the hospital, "I think it went away though." The patient says "that is just what happens when I use drugs." He denies experiencing psychotic symptoms at any time when he is not using hallucinogens. In a controlled environment the patient slept for 8 hours. He did not have pressured speech, racing thoughts, decreased need for sleep, increase in goal- directed activity. Did not have grandiose delusions or elevated mood. He did not endorse auditory or visual hallucinations. He did not have ideas of reference, paranoid delusions or other bizarre thoughts. He was started on Zyprexa 10 mg p.o. q.h.s. Emery Mart increased the dose of psychotropic medications to 10 mg p.o. b.i.d. after the patient was agitated, asked to leave group therapy because he was becoming verbally combative and argumentative. He was able to be redirected, took space, went to his room and calmed down. Throughout his hospital course the patient denied any side effects from olanzapine. There were no signs or symptoms of EPS or akathisia present. He denied SI, HI. He continued to deny auditory and visual hallucinations and other psychotic symptoms including denying paranoid delusions, ideas of reference during the duration of his stay. The patient says that his psychotic symptoms normally resolve "it just takes me while after I use drugs." He says that his symptoms usually resolve without the intervention of psychotropic medications. He says sometimes when he uses drugs and he gets psychotic, he rarely goes to the emergency department and he says that if he just stops using shrooms and LSD for a few days that his psychotic symptoms go away. He says the first time he had a psychotic break was in [place] after using shrooms. He says that the symptoms cleared after several weeks of not using hallucinogens. There were no further symptoms of agitated or aggressive behavior after Friday, and Friday. Prior to discharge, the patient was calm, cooperative, pleasant. He interacted appropriately with staff and with peers. Nurses reported the patient was engaged in treatment, attending groups, sleeping well, eating well, did not exhibit any threatening behaviors. He continued to be agreeable to taking medications. When this MD saw the patient on day of discharge on 08/22/2018, he was calm, cooperative. He denied any psychotic symptoms including denying auditory and visual hallucinations, paranoid delusions, ideas of reference. He also denied any thoughts, plans or intents to hurt himself or anyone else. He denied feeling anxious, hopeless, helpless, worthless or depressed. There were no signs or symptoms of gael present. This MD talked to the patient about the risks, benefits, and side effects of antipsychotic medications. Second generational atypicals like olanzapine can sometimes be used to treat substance induced mood disorder, but when patients have a previous history of psychotic symptoms resolving without the intervention of medication, there is always less risk by not adding the additional potential for adverse effects that can come from being on psychotropic medications. MD recommended tapering the patient's medication down to 10 mg p.o. q.h.s in order to minimize the risk of adverse affects, but continuing to maintain the potential for beneficial mood stabilizing effects and antipsychotic properties of the medication. The patient was agreeable to this. MD encouraged the patient to stay until Friday so that he could have outpatient appointment scheduled for him. The patient was uncertain where he was going to go. He said he has relatives in [place] and in [place]. He said [place] has been "my home base" and says that he thinks that he will go back there. MD did recommend the patient follow up with [facility] in [facility]. The patient stated that he knew how to access primary care services and that if he needed any help, he would go to an urgent care or ED. The MD said that patient is much more likely to have followup care if he left the hospital with appointments already scheduled for him, but he said that he did not want to wait until Friday, he was feeling " much better." He was denying any mood or psychotic related symptoms. He said that he was worried about his dog, even though MD tried to allay the patient's anxiety by letting him know that his mother had his dog and his dog was safe. The patient insisted upon leaving. He was not willing to stay in the hospital any longer. Since the patient did not pose a danger to himself, danger to others and was not gravely disabled, MD could not keep the patient in the hospital against his will involuntarily. CONDITION ON DISCHARGE: Patient was stable. His affect was euthymic. He was appropriate. He was calm, cooperative. There were no signs of unsafe or aggressive behaviors. He was not endorsing any psychotic symptoms. There were no signs or symptoms of gael or acute psychosis present. He denied any thoughts, plans or intents to hurt himself or anyone else. DISCHARGE MEDICATION: The patient was discharged with olanzapine 10 mg p.o. q.h.s., 14 tablets. The patient stated that he would follow up with the [facility] or [facility] in [place] to get connected with mental health services and to get refills on his prescription medications. DISCHARGE DIAGNOSES: 1. Hallucinogen induced psychotic disorder. 2. Hallucinogen use disorder severe. 3. Chronic substance use disorder, untreated. 4. Lack of social support. 5. History of noncompliance, nonadherence to treatment. 6. Unemployed. 7. Financial problems. DISPOSITION: Patient was discharged once his mental health hold . He was on a voluntary status at the time of discharge. MD attempted to encourage the patient to stay in the hospital so that followup appointments could be made with the [facility] in [place]. The patient stated he did not want to stay in the hospital to receive any further treatment. He stated that he would go to [facility] in [place] or the [facility] in [place] if he needed to get connected with providers. LEGAL COURSE: The patient was voluntary at the time of his discharge. /[id number]/MODL [id number]
== END 2018-08-22 15:48 | disposition home or self-care (01) | DRG 897 ==
LOC: BBEH 15:50
PROVIDERS: ADMIT Registered Nurse; ATTEND Registered Nurse
DX: F16.951 Hallucinogen use, unspecified with hallucinogen-induced psychotic disorder with hallucinations (principal); F20.9 Schizophrenia, unspecified; Z59.0 Homelessness; F31.9 Bipolar disorder, unspecified
CPT/HCPCS: 80305; G0480